=== PATIENT | female | born 1975 | race Caucasian/White ===

== ENCOUNTER 2017-01-28 15:59 | Emergency (ER) | payer OTHER ==
[2017-01-28 16:13] VITALS: PULSE 78; RESP 16
--- NOTE | 2017-01-28 16:53 | EDPHY ---
H & P Stated Complaint: hx excema/last 3 days ?inf l hand Time Seen by Provider: 01/28/17 16:52 HPI/ROS: HPI: This is a 41-year-old female who presents with Chief Complaint: Left hand infection Location: Left hand Quality: Infection Duration: 24 hours Signs and Symptoms: No bleeding, no radiation, no numbness, no weakness, no tingling, + decreased range of motion, + redness, + warmth, no injury Timing: Rapid onset Severity: Moderate Context: Patient has a history of eczema that she controlled with over-the- counter medications noticed her left palm had some dryness 1-2 days ago, yesterday she developed some redness and small blisters that have since erupted. Today while she was at work at the [employer], she noted that the redness and warmth and swelling has increased spreading from the palmar hand to the joints of her 2nd 3rd and 4th digits. Reports mild decreased range of motion. 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 Right-hand dominant. No history MRSA. Modifying Factors: Applied Neosporin last night with mild relief. 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 CONSTITUTIONAL: awake and alert, no obvious distress HEENT: Atraumatic and normocephalic, PERRL, EOMI. Tympanic membranes clear. Oropharynx clear, no exudate and moist pink mucosa. Airway patent. No lymphadenopathy. No meningismus. Cardiovascular: Normal S1/S2, regular rate, regular rhythm, without murmur rub or gallop. PULMONARY/CHEST: Symmetrical and nontender. Clear to auscultation bilaterally. Good air movement. No accessory muscle usage. ABDOMEN: Soft, nondistended, nontender, no rebound, no guarding, no peritoneal signs, no masses or organomegaly. No CVAT. EXTREMITIES: 2/2 radial pulses, left palmar side shows mild erythema/warmth/ swelling on the palm in near the MCP joint 2nd 3rd and 4th digits. 3-5 small white blisters noted. DIP/PIP flexion and extension of all 5 digits intact with good range of motion. Light touch sensation intact. Good capillary refill. no deformities, no clubbing, no cyanosis or edema. NEUROLOGICAL: no focal neuro deficits. GCS 15. SKIN: Warm and dry, no erythema. no rash. 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 - Social History Smoking Status: Never smoked Constitutional: Initial Vital Signs Temperature (C) 36.8 C 01/28/17 16:11 Heart Rate 78 01/28/17 16:11 Respiratory Rate 16 01/28/17 16:11 Blood Pressure 92/75 L 01/28/17 16:11 O2 Sat (%) 95 01/28/17 16:11 O2 Delivery Mode Room Air Allergies/Adverse Reactions: No Known Allergies Allergy (Verified 01/28/17 16:10) Home Medications: Medication Instructions Recorded LORazepam [Ativan (*)] 1 mg PO HS PRN 12/09/15 OXcarbazepine [Trileptal 300mg (*)] 600 mg PO TID 12/09/15 Zonisamide [Zonegran 100MG (*)] 400 mg PO HS@22 12/09/15 levETIRAcetam [Keppra 500 mg (*)] 2,000 mg PO BID 12/09/15 Cephalexin [Keflex (*)] 500 mg PO TID #21 cap 01/28/17 Sulfamethox/Tmp 800/160 mg 1 tab PO BID #14 tab 01/28/17 [Bactrim Ds] Medical Decision Making ED Course/Re-evaluation: Multiple options were discussed with patient including receiving 1 dose of IV antibiotics in the ER and being discharged on oral/topical antibiotic Research has shown that 1 dose of antibiotics is not proved to be more effective than starting dual therapy with oral antibiotics. She does not have perry tenosynovitis. No signs of neurovascular compromise/tenting of skin/compartment syndrome/ extremities and joints examined above and below area of concern and are neurovascularly intact. Keflex and Bactrim given for dual coverage including community-acquired MRSA Hand was cleaned with mild soap and water; bacitracin applied; clean sterile nonstick dressing placed. Verbal and written wound care instructions provided. She is to follow up on Wednesday for wound check. Differential Diagnosis: Differential diagnosis includes cellulitis, tenosynovitis, abscess, eczema flare. - Data Points Medications Given: Discontinued Medications Cephalexin HCl (Keflex) 500 mg PO EDNOW ONE PRN Reason: Protocol Stop: 01/28/17 17:01 Last Admin: 01/28/17 17:10 Dose: 500 mg Trimethoprim/Sulfamethoxazole (Bactrim Ds) 1 ea PO EDNOW ONE PRN Reason: Protocol Stop: 01/28/17 17:01 Last Admin: 01/28/17 17:07 Dose: 1 ea Departure - Departure Disposition: Home, Routine, Self-Care Clinical Impression: Eczema of left hand, Infection of left hand Condition: Good Instructions: Cellulitis (ED) Additional Instructions: Keep the dressing in place for 48 hours. After 48 hours, you may remove the dressing; wash the site daily with mild soap and water; then pat dry. Apply topical antibiotic ointment and change dressing daily. Limit use of left hand until infection healed. Apply ice for 30 minutes at a time; 2-3 times per day for the next 1-2 days. Follow up with this ER or PCP on Wednesday, February 01, 2017 for wound check. Prescriptions: Cephalexin [Keflex (*)] 500 mg PO TID #21 cap Sulfamethox/Tmp 800/160 mg [Bactrim Ds] 1 tab PO BID #14 tab
[2017-01-28] MEDS ORDERED: CEPHALEXIN 500 MG CAP PO ONE (17:00)
[2017-01-28] MEDS ORDERED: SULFAMETHOX/TMP 800/160 MG 1 TAB PO ONE (17:00)
[2017-01-28 17:30] VITALS: BP 107/71; TEMP 98.6; O2SAT 98
== END 2017-01-28 17:42 | disposition home or self-care (01) ==
DX: L08.9 Local infection of the skin and subcutaneous tissue, unspecified (principal); L30.9 Dermatitis, unspecified